=== PATIENT | female | born 1995 | race Caucasian/White ===

== ENCOUNTER 2020-03-14 01:29 | Emergency (ER) | payer MEDICAID, SELFPAY ==
[2020-03-14 01:32] VITALS: BP 123/86; PULSE 109; RESP 18; TEMP 36.7; O2SAT 97; BMI 16.9
[2020-03-14 01:52] VITALS: BMI 16.9
--- NOTE | 2020-03-14 01:57 | XR_ITS ---
PROCEDURE: XR HAND LT MIN 3V CLINICAL INDICATION: L thumb laceration w/pain COMPARISON: No exams were available for comparison FINDINGS: There is a comminuted fracture involving the tuft of the distal phalanx of the thumb. This is associated with soft tissue laceration. There is mild displacement of the distal fracture fragment by 3 mm. The joint spaces are well-preserved. No significant degenerative/arthritic changes. No erosive changes evident. Other findings:None. IMPRESSION: Open comminuted fracture of the tuft of the distal phalanx of the thumb with mild displacement Dictated by: Garrett Rodriguez MD 03/14/2020 04:59 Garrett Rodriguez MD in [place] 03/14/2020 04:59
--- NOTE | 2020-03-14 02:01 | HMH.EDEXTP ---
ED Disposition Clinical Impression: Fracture of distal phalanx of finger, Laceration of finger nail bed Disposition: Home, Self-Care Condition on Discharge: Fair Additional Instructions: Do not eat or drink upon discharge. You can have one sip of water. Remain in splint with thumb immobilized until then. Call the orthopedic clinic at 8:40 AM for further instructions as you may require operative repair in the OR later today. Take antibiotic as prescribed. Immediately return to the emergency department if any worsening pain, inability to contact the orthopedic clinic, or any other questions/concerns prior to following up with orthopedics this morning. Prescriptions: cephALEXin [cephALEXin 500mg capsule*] 500 mg PO Q6H 7 Days #28 cap Prescription Printed Referrals: Eduin Vidal MD [Staff Physician] - Estephanie Martins APRN [Primary Care Provider] - Forms: Work/School Release - Critical Care Critical Care Time: No Attestation: On , the high probability of a clinically significant, sudden or life threatening deterioration of the following system(s) required my full and direct attention, intervention and personal management. The time I documented below is in addition to time spent performing reported procedures but includes the following listed in this critical care notation. Medical Decision Making - Medical Records Medical records reviewed: Yes: I reviewed the patient's medical records. - Moris Inquiry Pt receiving controlled substance: Yes (IM morphine for acute pain due to trauma) Moris was queried for this patient: No Reason not queried -: Emergent pt cond-no time Risks and benefits of using a controlled substance: were discussed with pt by me Vital Signs: 03/14/20 01:32 03/14/20 02:32 03/14/20 04:30 Temperature 98.0 F Temperature Source Oral Pulse Rate [Left] 109 H 88 92 H Respiratory Rate 18 16 16 Blood Pressure [Left Arm] 123/86 121/74 150/92 H Blood Pressure Mean [Left Arm] 98 89 111 02 Sat by Pulse Oximetry 97 97 98 Orders (Tests/Meds): ED MEDICATIONS Discontinued Medications Generic Name Dose Route Start Last Admin Trade Name Freq PRN Reason Stop Dose Admin Hydrocodone Bitart/Acetaminophen 1 tab 03/14/20 04:42 03/14/20 04:43 [place] 5/325mg Tablet PO 03/14/20 04:43 1 tab ONCE ONE Administration Cephalexin HCl 500 mg 03/14/20 04:52 03/14/20 04:53 Cephalexin 500mg Capsule PO 03/14/20 04:53 500 mg ONCE ONE Administration Protocol Morphine Sulfate 4 mg 03/14/20 01:55 03/14/20 01:57 Morphine 2mg/Ml Syringe IM 03/14/20 01:56 4 mg ONCE ONE Administration Morphine Sulfate 6 mg 03/14/20 03:06 03/14/20 03:08 Morphine 2mg/Ml Syringe IM 03/14/20 03:07 6 mg ONCE ONE Administration Ondansetron HCl 4 mg 03/14/20 01:54 03/14/20 01:56 Zofran 4mg/2ml Vial IM 03/14/20 01:55 4 mg ONCE ONE Administration Tetanus/Diphtheria Toxoids 0.5 ml 03/14/20 02:04 03/14/20 02:14 Tenivac 0.5ml Syringe IM 03/14/20 02:05 0.5 ml .ONCE ONE Administration ORDERS Category Date Time Status XR hand LT min 3V Stat Exams 03/14/20 01:57 Taken Medical Decision Narrative: Patient presents with left thumb injury. On arrival, patient is neurovascularly intact distal to her injury. There is an obvious laceration to patient's left thumb with some maceration. ddx includes fracture vs ligamentous injury vs. contusion. Tetanus will be updated. Patient receives IM morphine/Zofran for pain control. X-rays will be obtained to ensure no bony abnormality. Demonstrates what appears to be angulated distal phalanx fracture (tuft fracture). This does fit with the mechanism of injury with patient slamming finger in the door. At this time, patient given additional IM shot of morphine and I did attempt to remove nail/explore nail bed after digital block with 3 mL 1% lidocaine (no epinephrine). Part of the nail is avulsed but still appears to be adhered t
[2020-03-14 02:32] VITALS: BP 121/74; PULSE 88; RESP 16; O2SAT 97
--- NOTE | 2020-03-14 04:26 | PC.NURSE ---
paged dr paz
[2020-03-14 04:30] VITALS: BP 150/92; PULSE 92; RESP 16; O2SAT 98
--- NOTE | 2020-03-14 04:33 | PC.NURSE ---
spoke with Dr Vidal. Dr Vidal states he will come into look at pt
--- NOTE | 2020-03-14 04:49 | PC.NURSE ---
Dr Vidal called and spoke to ER MD states to put finger in splint and directed pt to call ortho office @ 8:30
[2020-03-14 05:15] VITALS: BP 147/85; PULSE 90; RESP 16; TEMP 36.7; O2SAT 95
== END 2020-03-14 05:19 | disposition home or self-care (01) ==
PROVIDERS: Emergency Provider Emergency Medicine; PCP Nurse Practitioner
DX: S62.525A Nondisplaced fracture of distal phalanx of left thumb, initial encounter for closed fracture (principal); S61.112A Laceration without foreign body of left thumb with damage to nail, initial encounter; Y92.012 Bathroom of single-family (private) house as the place of occurrence of the external cause; W23.0XXA Caught, crushed, jammed, or pinched between moving objects, initial encounter; Z23 Encounter for immunization; F17.210 Nicotine dependence, cigarettes, uncomplicated
CPT/HCPCS: 73130; 73140; 81025; 86328; 90471; 90714; 96372; 96374; 99283; J2405

== ENCOUNTER 2020-03-14 13:40 | Day surgery (SDC) | payer MEDICAID, SELFPAY ==
[2020-03-14] VITALS (12 sets, daily range): BP systolic 106–128; BP diastolic 70–84; PULSE 66–89; RESP 14–18; TEMP 36.1–43; O2SAT 98–100; BMI 17.2
[2020-03-14 14:17] LABS: Urine Pregnancy, HCG Qual. Negative (Negative)
[2020-03-14 14:54] LABS: Coronavirus 19 IgG Antibody Negative (Negative); Coronavirus 19 IgM Antibody Negative (Negative)
--- NOTE | 2020-03-14 14:58 | XR_ITS ---
PROCEDURE: XR FINGER LT MIN 2V CLINICAL INDICATION: C-ARM USED FOR LEFT THUMB FIXATION. COMPARISON: CR XR HAND LT MIN 3V from 04/08/2020 FINDINGS: Fluoro time 23 seconds. C-arm utilized for pinning of the distal phalangeal fracture of the thumb with post pinning images showing good alignment IMPRESSION: Good alignment status post pinning distal phalangeal fracture of the thumb Dictated by: Garrett Rodriguez MD 04/21/2020 09:04 Garrett Rodriguez MD in [place] 04/21/2020 09:04
--- NOTE | 2020-03-14 16:28 | HMH.ANESCL ---
[facility] Anesthesia Checklist - Patient Identification Patient Identification: Arm Band - Structural Data Admitted From: Home Planned Operative Procedure/s: I&D left thumb Consent for Planned Operative Procedure(s) Verified: Yes Verified Documents: Surgical Consent, History and Physical - NPO Status Verified Time NPO: 00:00 - Additional verifications Anesthesia Reactions: No Hx Blood Transfusions: No Blood Transfusion Reaction: No - Airway Assessment C-Spine Mobility Assessed: Yes (mp2) TMJ Mobility Assessed: Yes Dentition: Good Dentition - Neurological Assessment Level of Consciousness: Awake, Alert - Anesthesia Plan Anesthesia Risk discussed: Yes Anesthesia Plan: Verified ASA Class: II Anesthesia Type: General [facility] History Medical History: Reports:: Anxiety, Depression Denies:: Cancer, Diabetes Mellitus Type 1, Diabetes Mellitus Type 2, Internal Pacemaker, MRSA, Seizures *Have you ever received a pneumonia vaccine?: No *Have you received a flu vaccine this season?: No Other Medical History: Denies: Blood Transfusion Reaction Anesthesia experience/problems:: nac Other Surgeries: Yes: No Previous Surgery. No: Pacemaker Amputation: No Fractures: No - *Social History Smoking Status: Current every day smoker Tobacco Type: cigarettes # Packs/Day (cigarettes): 1 Alcohol Intake: never Substance Use Type: denies use *Occupational Status:: employed Housing: house *Travel in the last 8 weeks: None - Psychiatric History Pschychiatric History:: Reports:: Anxiety, Depression Family Hx:: No significant family history
--- NOTE | 2020-03-14 17:51 | HMH.ANESI ---
[facility] Anesthesia Record Part I Intake, IV Amount: 1,000 Estimated blood loss (mL): 5 Urine output (mL): 0 Blood Pressure: 121/81 SaO2: 98 Pulse Rate: 66 Respiratory Rate: 16 Temperature: 97 F Patient is:: Drowsy, Stable Stable to PACU at:: 17:45
--- NOTE | 2020-03-14 18:04 | HMH.OPNOTE ---
Date of procedure: 03/14/20 Pre-op Diagnosis:: L thumb: 1) open, comminuted, displaced fracture of distal phalanx 2) fingertip laceration 3) nailbed injury Post-op Diagnosis:: L thumb: 1) open, comminuted, displaced fracture of distal phalanx 2) fingertip laceration 3) nailbed injury Procedure performed:: 1) irrigation and debridement L thumb open distal phalanx fracture 2) closed reduction percutaneous pinning (CRPP) L thumb distal phalanx fracture 3) L thumb fingertip laceration repair 4) L thumb nailbed repair Surgeon:: Sammi Reynolds MD Photographic Press Screwmaker(s):: Remington Akers ACCOUNT REPRESENTATIVE:: Amadeo Morton Anesthesia: local, LMA Estimated blood loss (mL): 5 Clinical Note:: 24-year-old [id number]-gibdubas female presents for initial orthopedic evaluation of an injury to the left thumb sustained late last night. She was in her bathroom and had just gotten out of the shower, when her child attempted to enter the bathroom; she shut the door to keep them from entering, and smashed her thumb in the door frame. She had immediate pain, deformity and significant amounts of blood. She was seen in the ER at [facility], where an open distal phalanx fracture was diagnosed, with overlying nailbed injury. A digital block was performed and I&D with nailbed closure was attempted, but due to the deformity could not be completed. She was asked to present to my office this morning n.p.o. for evaluation and scheduling for surgical I&D. She reports no underlying medical issues, takes no daily medications, and is allergic only to latex and shellfish. She was given a prescription for Keflex in the ER last night, but has not had this filled so far. She reports only pain in the left thumb, no fevers or chills, no numbness or tingling in the finger. I discussed treatment options with the patient, and given this is an open fracture with fracture deformity/displacement, and there is a substantial soft tissue injury with disruption of the nail bed, I recommend surgical intervention today. She came in this morning NPO, will advise her to remain so and add her on to the OR schedule this afternoon. I discussed the risks of the procedure with the patient, including bleeding, infection, numbness in the fingertip, postoperative stiffness, potential need for ongoing wound care or occupational therapy, the potential for osteomyelitis and possible finger amputation, and the risks of anesthesia. The patient vocalized understanding and is in agreement with this plan, informed consent was obtained. Operative findings:: -- open fracture L thumb distal phalanx, with exposed bone but no exposed tendon -- ulnar and radial digital neurovascular bundles identified and were not injured -- nailbed repair with 4-0 chromic -- fingertip (skin) laceration repair with 4-0 nylon -- CRPP distal phalanx fracture performed with 1 k-wire (0.045-in) Operative note:: The patient was identified in preoperative holding and the left thumb marked by myself with marking pen. Informed consent was verified with the patient and all questions answered. She was then taken to the OR where she was placed on the operative table with an attached hand table. 1 gram Ancef was infused intravenously. General anesthesia was induced with an LMA and the left thumb prepped with betadine and draped in the usual sterile fashion. Timeout was performed, identifying the correct patient, the correct procedure, and correct site. Digital nerve block was performed to the left thumb using 10 cc of 0.5% Marcaine without epinephrine. The procedure was begun by gently removing the nail plate with a freer elevator and placing it in a sterile cup of betadine to soak during the remainder of the procedure. The small finger of a sterile surgical glove was trimmed and placed on the thumb, and when rolled proximally served as a finger tourniquet. The wound was then copiously irrigated, removed all coagulated blood from the wound. There was no
--- NOTE | 2020-03-14 18:17 | SUR.PHASEI ---
PATIENT HAS BEEN COOPERATIVE AND APPROPRIATE IN PACU. PATIENT REPORTS 0 PAIN ON A SCALE OF 1-10. DRESSING REMAINS C/D/I. NSR ON TELEMETRY. VSS. REPORT GIVEN TO Margarito HENSON RN AND PATIENT TAKEN TO POST OP.
--- NOTE | 2020-03-14 18:26 | SUR.PHASEI ---
ENTRY ERRORO - REPORT GIVEN TO Jackie HUSAIN RN.
--- NOTE | 2020-03-14 19:26 | P.PN_ITS ---
[facility] Anesthesia Record Part II Discharge Time: 18:15 Destination: Surgical Day Care (OP Surgery) PACU nurse assessment reviewed?: Yes Patient Condition:: Good Anesthesia Complications:: None Swallowing reflex intact?: Yes Cyanosis?: No Blood Pressure: 118/79 Pulse Rate: 71 Temperature: 97 F Mental Status: Alert & Oriented Pain level:: 0 Nausea and/or vomitting:: None Intake, IV Amount: 0
--- NOTE | 2020-03-16 13:53 | SUR.OPER ---
Amended Note K-wire 0.045 used in closed reduction percutaneous pinning-left thumb.
== END 2020-03-14 19:18 | disposition home or self-care (01) ==
LOC: OR 13:41
PROVIDERS: PCP Nurse Practitioner; Visit Provider Orthopaedic Surgery
PROC: (CPT 26756; principal; 2020-03-14 15:00)
DX: S62.522B Displaced fracture of distal phalanx of left thumb, initial encounter for open fracture (principal); W23.0XXA Caught, crushed, jammed, or pinched between moving objects, initial encounter; Y92.012 Bathroom of single-family (private) house as the place of occurrence of the external cause; S61.412A Laceration without foreign body of left hand, initial encounter
CPT/HCPCS: 26756; 12001; 73140; 81025; 86328; 96374; J2405

== ENCOUNTER 2020-03-15 21:23 | Emergency (ER) | payer MEDICAID, SELFPAY ==
[2020-03-15 21:38] VITALS: BP 134/77; PULSE 112; RESP 16; TEMP 36.6; O2SAT 96; BMI 17.4
--- NOTE | 2020-03-15 21:40 | HMH.EDGENADL ---
ED Disposition Clinical Impression: Laceration of finger nail bed Qualifiers: Encounter type: subsequent encounter Qualified Code(s): S61.319D - Laceration without foreign body of unspecified finger with damage to nail, subsequent encounter Disposition: Home, Self-Care Condition on Discharge: Good Instructions: DI for Laceration Repair, DI for Acute Pain -- Adult Additional Instructions: Follow-up with orthopedic surgeon in clinic. Continue to take pain medications as prescribed at home. May also take Tylenol/ibuprofen intermittently every 6 hours. Keep hand elevated to help with swelling. Referrals: Estephanie Martins APRN [Primary Care Provider] - - Critical Care Critical Care Time: No Attestation: On 03/15/20, the high probability of a clinically significant, sudden or life threatening deterioration of the following system(s) required my full and direct attention, intervention and personal management. The time I documented below is in addition to time spent performing reported procedures but includes the following listed in this critical care notation. Medical Decision Making - Medical Records Medical records reviewed: Yes: I reviewed the patient's medical records. - Moris Inquiry Pt receiving controlled substance: No Vital Signs: 03/15/20 21:38 03/15/20 22:58 Temperature 98 F 97.9 F Temperature Source Oral Oral Pulse Rate 101 H Pulse Rate [Left] 112 H Respiratory Rate 16 18 Blood Pressure 132/89 Blood Pressure [Right Arm] 134/77 Blood Pressure Mean [Right Arm] 96 Blood Pressure Source Automatic Cuff Blood Pressure Source [Right Arm] Automatic Cuff Blood Pressure Position Sitting Blood Pressure Position [Right Arm] Sitting 02 Sat by Pulse Oximetry 96 Oxygen Delivery Method Room Air Room Air Orders (Tests/Meds): ED MEDICATIONS Discontinued Medications Generic Name Dose Route Start Last Admin Trade Name Kirillq PRN Reason Stop Dose Admin Morphine Sulfate 4 mg 03/15/20 21:43 03/15/20 21:47 Morphine 2mg/Ml Syringe IM 03/15/20 21:44 4 mg ONCE ONE Administration Ondansetron HCl 4 mg 03/15/20 21:44 03/15/20 21:47 Zofran 4mg/2ml Vial IM 03/15/20 21:45 4 mg ONCE ONE Administration Medical Decision Narrative: 24-year-old female with recent history of thumb surgery yesterday comes into the emergency department for evaluation of left thumb pain. Hemodynamically stable nontoxic in appearance upon arrival. Physical exam significant for swollen and tender postoperative left thumb with no significant evidence of infection at this time. Patient is currently on prescribed antibiotics. Removed and replaced thumb spica splint. Provided IM morphine for pain control with significant improvement. Advised on importance of following up with orthopedics as an outpatient. Advised on precautions. Safe to discharge at this time. General Adult HPI - General Chief complaint: Wound/Laceration Stated complaint: AO [id number] Lac to thumb,Surg Time Seen by Provider: 03/15/20 21:30 Mode of Arrival: Ambulatory Source of Information: Patient Limitations: No Limitations - History of Present Illness HPI narrative: 24-year-old female with history of recent surgery on left thumb who presents the emergency department for evaluation of worsening left thumb pain. Patient called her orthopedic surgeon who advised her to come to the emergency department for further evaluation. Patient states she has been taking her pain medications that were prescribed to her, without significant improvement of her symptoms. Denies any fevers. Reports nausea due to thumb pain. Denies any loss of sensation. Denies any other symptoms at this time. - Related Data Home Medications Medication Instructions Recorded Confirmed cephALEXin [cephALEXin 500mg 500 mg PO Q6H 03/14/20 03/15/20 capsule*] Allergies Allergy/AdvReac Type Severity Reaction Status Date / Time latex Allergy Verified
[2020-03-15 22:58] VITALS: BP 132/89; PULSE 101; RESP 18; TEMP 36.6; O2SAT 97
== END 2020-03-15 23:00 | disposition home or self-care (01) ==
PROVIDERS: Emergency Provider Emergency Medicine; PCP Nurse Practitioner
DX: G89.18 Other acute postprocedural pain (principal); S62.525D Nondisplaced fracture of distal phalanx of left thumb, subsequent encounter for fracture with routine healing; S61.112D Laceration without foreign body of left thumb with damage to nail, subsequent encounter
CPT/HCPCS: 29125 ×2; 96372; 99282; J2405

== ENCOUNTER → 2020-03-24 12:58 | Outpatient (CLI) | payer MEDICAID, SELFPAY ==
--- NOTE | 2020-03-24 13:02 | XR_ITS ---
PROCEDURE: XR HAND LT MIN 3V CLINICAL INDICATION: s/p LT thumb FX Follow-up fracture COMPARISON: CR XR HAND LT MIN 3V from 03/14/2020 FINDINGS: Pin has been placed through the distal phalanx of the thumb stabilizing the comminuted fracture with good alignment of the fracture fragments. There is a bone island within the mid aspect of the scaphoid. Other findings:None. IMPRESSION: Good alignment status post pinning of the distal phalanx fracture of the thumb Dictated by: Garrett Rodriguez MD 03/24/2020 16:53 Garrett Rodriguez MD in [place] 03/24/2020 16:53
== END ==
PROVIDERS: PCP Nurse Practitioner; Visit Provider Orthopaedic Surgery
DX: S62.525D Nondisplaced fracture of distal phalanx of left thumb, subsequent encounter for fracture with routine healing (principal)
CPT/HCPCS: 73130

== ENCOUNTER → 2020-04-08 12:05 | Outpatient (CLI) | payer MEDICAID, SELFPAY ==
--- NOTE | 2020-04-08 12:09 | XR_ITS ---
PROCEDURE: XR HAND LT MIN 3V CLINICAL INDICATION: LT thumb injury Follow-up fracture pinning COMPARISON: CR XR HAND LT MIN 3V from 03/14/2020 CR XR HAND LT MIN 3V from 03/24/2020 FINDINGS: There is a pin present through the distal phalanx of the thumb with good alignment of the fracture fragments. Fracture lines are still visible although somewhat less distinct. IMPRESSION: Good alignment status post pinning with healing of the distal phalanx fracture of the thumb Dictated by: Garrett Rodriguez MD 04/08/2020 16:08 Garrett Rodriguez MD in [place] 04/08/2020 16:08
== END ==
PROVIDERS: Visit Provider Orthopaedic Surgery
DX: S62.522B Displaced fracture of distal phalanx of left thumb, initial encounter for open fracture (principal); S61.319D Laceration without foreign body of unspecified finger with damage to nail, subsequent encounter
CPT/HCPCS: 73130